=== PATIENT | female | born 1960 | race Hispanic/Latino ===

== ENCOUNTER 2024-12-12 14:22 | Emergency (ER) | payer OTHER ==
[2024-12-12] MEDS ORDERED: HYDROcodone/Acetaminophen 5/325 mg Tablet ONE (15:58)
[2024-12-12] MEDS ORDERED: Ibuprofen 200 MG TAB ONE (15:58)
== END 2024-12-12 17:24 | disposition home or self-care (01) ==
LOC: CSHERS 14:22
DX: G89.29 Other chronic pain (principal); M25.562 Pain in left knee; I25.10 Atherosclerotic heart disease of native coronary artery without angina pectoris; E78.5 Hyperlipidemia, unspecified; I10 Essential (primary) hypertension; J45.909 Unspecified asthma, uncomplicated; Z55.6 Problems related to health literacy; Z87.891 Personal history of nicotine dependence
CPT/HCPCS: 99283